=== PATIENT | male | born 1985 | race Caucasian/White ===

== ENCOUNTER 2019-01-24 03:36 | Emergency (ER) | payer SELFPAY ==
[~2019-01-24] VITALS: Ht 180.3 cm; Wt 122.5 kg
[~2019-01-24 03:36] MED LIST: Z.0.NEXIUM20 MG PO
--- OUTSIDE RECORDS SUMMARY | 2019-01-24 03:39 | XMS REPORT | Clinical Summary ---
Author Author [facility] [employer] [facility] Address Unknown Phone Unavailable Care Team Providers Care Evp Name Role Phone Leonardo Garduno MD PCP Allergies Comments Active Allergy Reactions Severity Noted Date Vomiting Clindamycin Hives, GI 01/07/2019 Intolerance Medications Not on file Active Problems Not on file Encounters Care Team Description Date Type Specialty Richard Sanchez MD Generalized abdominal pain (Primary Dx) 01/07/2019 Emergency Emergency Medicine after 01/23/2018 Social History Date Tobacco Use Types Packs/Day Years Used Never Assessed Sex Assigned at Date Recorded Not on file Industry Job Start Date Occupation Not on file Not on file Not on file Travel End Travel History Travel Start No recent travel history available. Last Filed Vital Signs Time Taken Vital Sign Reading 01/07/2019 1:27 AM [employer] Blood Pressure 128/80 01/07/2019 1:27 AM [employer] Pulse 104 01/07/2019 1:27 AM [employer] Temperature 37.1 C (98.8 F) 01/07/2019 1:27 AM [employer] Respiratory Rate 20 01/07/2019 1:27 AM [employer] Oxygen Saturation 96% - Inhaled Oxygen - Concentration 01/07/2019 1:27 AM [employer] Weight 129 kg (285 lb) 01/07/2019 1:27 AM [employer] Height 182.9 cm (6') 01/07/2019 1:27 AM [employer] Body Mass Index 38.65 Plan of Treatment Not on file Results Not on fileafter 01/23/2018 Advance Directives Patient has advance care planning documents on file. For more information, renée vargas contact: Nate Wilson [address] [place] [address]
== END 2019-01-24 04:15 | disposition home or self-care (01) ==
LOC: ER 03:36
DX: J34.89 Other specified disorders of nose and nasal sinuses (principal); F17.210 Nicotine dependence, cigarettes, uncomplicated
CPT/HCPCS: 99282

== ENCOUNTER 2020-05-21 02:37 | Emergency (ER) | payer SELFPAY ==
--- NOTE | 2020-05-21 02:47 | NUR ---
NO ANSWER WHEN CALLED. PT LWBS BY INNA RAM MD
== END 2020-05-21 03:05 | disposition left against medical advice (07) ==
LOC: FSED 03:03
DX: R11.10 Vomiting, unspecified (principal)

== ENCOUNTER 2021-01-10 08:04 | Emergency (ER) | payer SELFPAY ==
[~2021-01-10] VITALS: Ht 182.9 cm; Wt 127.0 kg
[2021-01-10] MEDS ORDERED: STROMECTOL3 MG PO (13:39)
== END 2021-01-10 08:42 | disposition home or self-care (01) ==
LOC: FSED 08:25
DX: F41.9 Anxiety disorder, unspecified (principal); Z96.652 Presence of left artificial knee joint
CPT/HCPCS: 99282